=== PATIENT | female | born 1970 | race Caucasian/White ===

== ENCOUNTER 2025-09-24 12:50 | Outpatient (CLI) | payer BC, OTHER, SELFPAY ==
--- NOTE | 2025-09-24 13:00 | CRLHL7_ITS ---
For Patients: As a result of the Century Cures Act, medical imaging exams and procedure reports are released immediately into your electronic medical record. You may view this report before your referring provider. If you have questions, please contact your health care provider. INDICATION: Gastric cancer. Restaging. TECHNIQUE: CT chest, abdomen and pelvis acquired 62 cc Omnipaque 350 IV contrast. COMPARISON: 06/12/2025. FINDINGS: CHEST: No consolidation. No pulmonary edema. No pleural effusion or pneumothorax. Subcentimeter mediastinal lymph nodes. No hilar lymphadenopathy. The heart is normal in size. No significant effusion. No axillary lymphadenopathy. No chest wall mass. Right port catheter terminates within the superior vena cava. Bubbly sclerotic lesion within the left proximal humerus is redemonstrated and likely represents a low-grade chondroid lesion. Suture anchor within the right shoulder. ABDOMEN AND PELVIS: The liver is normal in size. There are grossly unchanged cysts within the liver as well as subcentimeter hypoattenuating lesions which are too small to further characterize the likely represent cysts as well. The gallbladder is distended. No biliary ductal dilatation. The spleen is normal in size. The pancreas is without stranding or main ductal dilatation the kidneys are without hydronephrosis. Prominent left renal pelvis is redemonstrated. Mild left perinephric stranding likely represent scarring and is unchanged. Right renal cysts. The urinary bladder is distended. Redemonstrated are postoperative changes within the stomach with J pouch or gastrojejunostomy. There is partial distention with ingested material. A stent is present. The small bowel is decompressed without evidence of an obstruction. A right-sided percutaneous small bowel catheter is noted terminating within the left pelvis. Previously terminated within the right lower quadrant. There is evidence of small bowel intussusception along the mid aspect of the catheter. The colon is nondilated without evidence of colitis. Scattered diverticula are present. No free air. No ascites. No organized drainable fluid collection. No omental caking or peritoneal nodularity. No lymphadenopathy. The uterus is present. Portal vein is patent. Aorta is normal in caliber. Bone windows demonstrate L4-5 instrumented fusion. IMPRESSION: 1. No CT evidence of metastatic disease within the chest, abdomen and pelvis. 2. Right percutaneous small bowel catheter now terminates within the small bowel of the left pelvis, previously the right lower quadrant. Evidence of small bowel intussusception along the mid aspect of the catheter. This is likely transient and benign. No evidence of bowel obstruction or enteritis. Please note that all CT scans at this facility use dose modulation, iterative reconstruction, and/or weight-based dosing when appropriate to reduce radiation dose to as low as reasonably achievable. Dictated by Damon Andres MD @ 09/25/2025 9:00:36 AM (Electronically Signed)
== END 2025-09-24 12:51 | disposition home or self-care (01) ==
LOC: CT 12:50
PROVIDERS: Visit Provider Clinical Nurse Specialist
DX: C16.9 Malignant neoplasm of stomach, unspecified (principal); K63.89 Other specified diseases of intestine; Z46.82 Encounter for fitting and adjustment of non-vascular catheter; K57.30 Diverticulosis of large intestine without perforation or abscess without bleeding; M89.8X2 Other specified disorders of bone, upper arm; N28.1 Cyst of kidney, acquired; R93.2 Abnormal findings on diagnostic imaging of liver and biliary tract
CPT/HCPCS: 71260; 74177; Q9967

== ENCOUNTER 2025-09-29 07:45 | Outpatient (RCR) | payer BC, OTHER, SELFPAY ==
[2025-04-21 09:07] LABS: Hematocrit* 36.6 % (33.0-51.0); Hemoglobin* 11.9 gm/dL (12.0-16.0); Immature Granulocytes Abs Auto 0.04 K/uL (0.00-0.30); Immature Granulocytes Pct Auto 0.7 %; Lymphocytes Absolute Auto 1.10 K/uL (0.90-2.90); Mean Corpuscular HGB Conc 33 gm/dL (32-36); Mean Corpuscular Hemoglobin 34 pg (26-34); Mean Corpuscular Volume 104 fL (80-100); RDW Coefficient of Variation % 13.8 % (11.5-15.5); Red Blood Count* 3.53 m/uL (4.00-5.20); Slide Review Reflex No; White Blood Count* 5.71 K/uL (4.50-11.00)
[2025-04-21] MEDS: SODIUM CHLORIDE 0.9 % (FLUSH) 10 ML SYRINGE IVF ×2 (09:09→11:28)
[2025-04-21 09:16] LABS: Chloride* 101 mmol/L (96-114)
[2025-04-21 09:17] LABS: Albumin* 3.7 g/dL (3.3-5.0); Potassium* 3.9 mmol/L (3.6-5.1); Sodium* 137 mmol/L (135-149)
[2025-04-21 09:19] LABS: Alanine Aminotransferase* 30 U/L (4-35); Anion Gap 4 mEq/L (7-15); Aspartate Amino Transferase* 26 U/L (12-35); Blood Urea Nitrogen* 18 mg/dL (7-30); Carbon Dioxide* 32 mmol/L (20-32); Creatinine* 0.7 mg/dL (0.5-1.5); Est. Creatinine Clearance* 74.23; Estimated Glomerular Filt Rate 101 ml/min
[2025-04-21 09:20] LABS: Alkaline Phosphatase* 53 U/L (40-150); Bilirubin Total* 0.6 mg/dL (0.1-1.5); Calcium* 9.4 mg/dL (8.4-10.6); Glucose* 106 mg/dL (60-115); Total Protein* 6.4 g/dL (6.0-8.3)
[2025-04-21] MEDS: NIVOLUMAB 240 MG, TUBING PRIMARY 1 EACH, In-line 0.2 micron filter set 1 EACH in 0.9 % ... 248 MG IVPB (10:38)
[2025-04-21] MEDS: 5 % DEXTROSE 250 ML IV (11:28)
[2025-04-21] MEDS: LEUCOVORIN CALCIUM 100 MG, TUBING SECONDARY 1 EACH in 5 % DEXTROSE 250 ML 250 ML 127 MG IV (11:45)
--- NOTE | 2025-04-23 10:21 | ONC.NURNOTE ---
Patient received brief review of chemo due to receiving prior to sa-uzoygsdemm-Xlnocpgxt medications-administration and potential side effects-after hours xqwtfesgdy-rffd-cync at home-nutrition Binder given-consents signed
[2025-04-23] MEDS: HEPARIN 500 UNIT/5 ML SYRINGE IVF (13:23)
[2025-04-23] MEDS: SODIUM CHLORIDE 0.9 % (FLUSH) 10 ML SYRINGE IVF (13:23)
[2025-04-23 14:09] VITALS: BP 120/83; PULSE 69; RESP 16; TEMP 36; O2SAT 98
[2025-05-06 09:26] LABS: Hematocrit* 35.5 % (33.0-51.0); Hemoglobin* 11.7 gm/dL (12.0-16.0); Immature Granulocytes Pct Auto 0.5 %; Lymphocytes Absolute Auto 1.10 K/uL (0.90-2.90); Mean Corpuscular HGB Conc 33 gm/dL (32-36); Mean Corpuscular Hemoglobin 34 pg (26-34); Mean Corpuscular Volume 104 fL (80-100); RDW Coefficient of Variation % 12.9 % (11.5-15.5); Red Blood Count* 3.41 m/uL (4.00-5.20); White Blood Count* 4.24 K/uL (4.50-11.00)
[2025-05-06 09:36] LABS: Immature Granulocytes Abs Auto 0.00 K/uL (0.00-0.30); Slide Review Reflex No
[2025-05-06 09:44] LABS: Albumin* 3.7 g/dL (3.3-5.0); Chloride* 102 mmol/L (96-114)
[2025-05-06 09:45] LABS: Potassium* 4.2 mmol/L (3.6-5.1); Sodium* 138 mmol/L (135-149)
[2025-05-06 09:47] LABS: Blood Urea Nitrogen* 24 mg/dL (7-30); Creatinine* 0.6 mg/dL (0.5-1.5); Est. Creatinine Clearance* 86.61; Estimated Glomerular Filt Rate 105 ml/min
[2025-05-06 09:48] LABS: Alanine Aminotransferase* 26 U/L (4-35); Alkaline Phosphatase* 106 U/L (40-150); Anion Gap 4 mEq/L (7-15); Aspartate Amino Transferase* 33 U/L (12-35); Bilirubin Total* 0.2 mg/dL (0.1-1.5); Calcium* 9.2 mg/dL (8.4-10.6); Carbon Dioxide* 32 mmol/L (20-32); Glucose* 108 mg/dL (60-115); Total Protein* 6.4 g/dL (6.0-8.3)
[2025-05-06] MEDS: SODIUM CHLORIDE 0.9 % (FLUSH) 10 ML SYRINGE IVF ×2 (11:10→14:26)
[2025-05-06] MEDS: DEXAMETHASONE 10 MG/ML PF 12 MG IVP (11:10)
[2025-05-06] MEDS: NIVOLUMAB 240 MG, TUBING PRIMARY 1 EACH, In-line 0.2 micron filter set 1 EACH in 0.9 % ... 248 MG IVPB (11:18)
[2025-05-06] MEDS: 5 % DEXTROSE 250 ML IV (11:51)
[2025-05-06] MEDS: LEUCOVORIN CALCIUM 100 MG, TUBING SECONDARY 1 EACH in 5 % DEXTROSE 250 ML 250 ML 128 MG IV (11:54)
[2025-05-06] MEDS: FAMOTIDINE 10 MG/ML inj 20 MG IVP (13:10)
[2025-05-08 13:47] VITALS: BP 112/80; PULSE 99; RESP 92; TEMP 36.7; O2SAT 99
[2025-05-08] MEDS: SODIUM CHLORIDE 0.9 % (FLUSH) 10 ML SYRINGE IVF (13:50)
[2025-05-08] MEDS: HEPARIN 500 UNIT/5 ML SYRINGE IVF (13:50)
[2025-05-19] MEDS: ALTEPLASE 2 MG INJ IVF (09:40)
[2025-05-19 09:56] LABS: Hematocrit* 35.7 % (33.0-51.0); Hemoglobin* 11.8 gm/dL (12.0-16.0); Immature Granulocytes Pct Auto 0.3 %; Lymphocytes Absolute Auto 0.80 K/uL (0.90-2.90); Mean Corpuscular HGB Conc 33 gm/dL (32-36); Mean Corpuscular Hemoglobin 34 pg (26-34); Mean Corpuscular Volume 103 fL (80-100); RDW Coefficient of Variation % 13.0 % (11.5-15.5); Red Blood Count* 3.48 m/uL (4.00-5.20); White Blood Count* 3.07 K/uL (4.50-11.00)
[2025-05-19 10:02] LABS: Immature Granulocytes Abs Auto 0.00 K/uL (0.00-0.30); Slide Review Reflex No
[2025-05-19 10:09] LABS: Albumin* 3.5 g/dL (3.3-5.0); Chloride* 101 mmol/L (96-114); Potassium* 3.4 mmol/L (3.6-5.1); Sodium* 136 mmol/L (135-149)
[2025-05-19 10:12] LABS: Alanine Aminotransferase* 23 U/L (4-35); Alkaline Phosphatase* 70 U/L (40-150); Anion Gap 4 mEq/L (7-15); Aspartate Amino Transferase* 29 U/L (12-35); Bilirubin Total* 0.4 mg/dL (0.1-1.5); Blood Urea Nitrogen* 14 mg/dL (7-30); Calcium* 9.4 mg/dL (8.4-10.6); Carbon Dioxide* 31 mmol/L (20-32); Creatinine* 0.7 mg/dL (0.5-1.5); Est. Creatinine Clearance* 74.23; Estimated Glomerular Filt Rate 101 ml/min; Glucose* 123 mg/dL (60-115); Total Protein* 6.4 g/dL (6.0-8.3)
[2025-05-19] MEDS: SODIUM CHLORIDE 0.9 % (FLUSH) 10 ML SYRINGE IVF (11:09)
[2025-05-19] MEDS: HEPARIN 500 UNIT/5 ML SYRINGE IVF (11:09)
[2025-06-02 09:12] VITALS: BP 121/85; PULSE 65; TEMP 36.7; O2SAT 100
[2025-06-02 09:57] LABS: Albumin* 3.1 g/dL (3.3-5.0); Chloride* 105 mmol/L (96-114); Sodium* 137 mmol/L (135-149)
[2025-06-02 10:00] LABS: Alanine Aminotransferase* 30 U/L (4-35); Alkaline Phosphatase* 54 U/L (40-150); Anion Gap 5 mEq/L (7-15); Aspartate Amino Transferase* 35 U/L (12-35); Bilirubin Total* 0.3 mg/dL (0.1-1.5); Blood Urea Nitrogen* 13 mg/dL (7-30); Calcium* 8.9 mg/dL (8.4-10.6); Carbon Dioxide* 27 mmol/L (20-32); Creatinine* 0.6 mg/dL (0.5-1.5); Est. Creatinine Clearance* 86.61; Estimated Glomerular Filt Rate 105 ml/min; Glucose* 114 mg/dL (60-115); Total Protein* 5.7 g/dL (6.0-8.3)
[2025-06-02 10:12] LABS: Hematocrit* 33.2 % (33.0-51.0); Hemoglobin* 10.9 gm/dL (12.0-16.0); Immature Granulocytes Abs Auto 0.06 K/uL (0.00-0.30); Immature Granulocytes Pct Auto 0.9 %; Mean Corpuscular HGB Conc 33 gm/dL (32-36); Mean Corpuscular Hemoglobin 34 pg (26-34); Mean Corpuscular Volume 102 fL (80-100); RDW Coefficient of Variation % 12.6 % (11.5-15.5); Red Blood Count* 3.25 m/uL (4.00-5.20); White Blood Count* 6.42 K/uL (4.50-11.00)
[2025-06-02 10:13] LABS: Potassium* 2.7 mmol/L (3.6-5.1)
[2025-06-02 10:17] LABS: Lymphocytes Absolute Auto 1.10 K/uL (0.90-2.90); Slide Review Reflex No
[2025-06-02] MEDS: POTASSIUM CHLORIDE 10 MEQ/100 ML PIGGYBACK 100 MEQ IVPB ×4 (11:05→14:19)
[2025-06-02] MEDS: SODIUM CHLORIDE 0.9 % (FLUSH) 10 ML SYRINGE IVF (15:25)
[2025-06-02] MEDS: HEPARIN 500 UNIT/5 ML SYRINGE IVF (15:25)
[2025-06-03] MEDS: SODIUM CHLORIDE 0.9 % (FLUSH) 10 ML SYRINGE IVF ×2 (09:30→14:52)
[2025-06-03 10:17] VITALS: BP 126/86; PULSE 57; RESP 15; TEMP 36.6; O2SAT 98
[2025-06-03 11:17] LABS: Albumin* 3.3 g/dL (3.3-5.0); Chloride* 104 mmol/L (96-114); Potassium* 3.4 mmol/L (3.6-5.1); Sodium* 137 mmol/L (135-149)
[2025-06-03 11:19] LABS: Blood Urea Nitrogen* 12 mg/dL (7-30); Creatinine* 0.7 mg/dL (0.5-1.5); Est. Creatinine Clearance* 74.23; Estimated Glomerular Filt Rate 101 ml/min
[2025-06-03 11:20] LABS: Alanine Aminotransferase* 32 U/L (4-35); Alkaline Phosphatase* 65 U/L (40-150); Anion Gap 3 mEq/L (7-15); Aspartate Amino Transferase* 36 U/L (12-35); Bilirubin Total* 0.4 mg/dL (0.1-1.5); Calcium* 9.3 mg/dL (8.4-10.6); Carbon Dioxide* 30 mmol/L (20-32); Glucose* 102 mg/dL (60-115); Total Protein* 5.9 g/dL (6.0-8.3)
[2025-06-03] MEDS: DEXAMETHASONE 10 MG/ML PF 12 MG IVP (11:34)
[2025-06-03] MEDS: NIVOLUMAB 240 MG, TUBING PRIMARY 1 EACH, In-line 0.2 micron filter set 1 EACH in 0.9 % ... 248 MG IVPB (11:48)
[2025-06-03] MEDS: LEUCOVORIN CALCIUM 100 MG, TUBING SECONDARY 1 EACH in 5 % DEXTROSE 250 ML 250 ML 128 MG IV (12:31)
[2025-06-03] MEDS: 5 % DEXTROSE 250 ML IV (12:32)
[2025-06-03] MEDS: POTASSIUM BICARB 25 MEQ EFFERVESCENT TAB J-TUBE (13:37)
[2025-06-05 13:44] VITALS: BP 85/61
[2025-06-05 13:45] VITALS: BP 90/63; PULSE 75; RESP 16; TEMP 36.2; O2SAT 97
[2025-06-05] MEDS: SODIUM CHLORIDE 0.9 % (FLUSH) 10 ML SYRINGE IVF (13:53)
[2025-06-05] MEDS: HEPARIN 500 UNIT/5 ML SYRINGE IVF (13:53)
--- NOTE | 2025-06-05 14:06 | ONC.NURNOTE ---
Pt here for pump off. Pt states she was more exhausted with this treatment, feels better today. Pt has a scan and has an appt with Dr. Pinon prior to next cycle. BP 90/63, initally 85/61. Pt denies feeling dizzy or lightheaded. Pt states she took her blood pressure meds at 1100 today (3 blood pressure meds.) Dextrine Mixer recommended to pt she should follow up with her primary care to evaluate BP and need for these meds. Pt verbalized understanding of plan of care.
[2025-06-16 09:23] VITALS: BP 124/84; PULSE 78; RESP 16; TEMP 36.7; O2SAT 98
[2025-06-16 10:06] LABS: Albumin* 3.3 g/dL (3.3-5.0); Chloride* 104 mmol/L (96-114); Potassium* 3.7 mmol/L (3.6-5.1); Sodium* 135 mmol/L (135-149)
[2025-06-16 10:09] LABS: Alanine Aminotransferase* 26 U/L (4-35); Alkaline Phosphatase* 66 U/L (40-150); Anion Gap 4 mEq/L (7-15); Aspartate Amino Transferase* 30 U/L (12-35); Bilirubin Total* 0.7 mg/dL (0.1-1.5); Blood Urea Nitrogen* 14 mg/dL (7-30); Calcium* 9.0 mg/dL (8.4-10.6); Carbon Dioxide* 27 mmol/L (20-32); Creatinine* 0.6 mg/dL (0.5-1.5); Est. Creatinine Clearance* 86.61; Estimated Glomerular Filt Rate 105 ml/min; Glucose* 115 mg/dL (60-115); Total Protein* 5.9 g/dL (6.0-8.3)
[2025-06-16 11:21] LABS: Hematocrit* 32.8 % (33.0-51.0); Hemoglobin* 10.8 gm/dL (12.0-16.0); Immature Granulocytes Pct Auto 0.7 %; Mean Corpuscular HGB Conc 33 gm/dL (32-36); Mean Corpuscular Hemoglobin 33 pg (26-34); Mean Corpuscular Volume 99 fL (80-100); RDW Coefficient of Variation % 13.3 % (11.5-15.5); Red Blood Count* 3.31 m/uL (4.00-5.20)
[2025-06-16 11:26] LABS: Immature Granulocytes Abs Auto 0.00 K/uL (0.00-0.30); Lymphocytes Absolute Auto 0.50 K/uL (0.90-2.90); Slide Review Reflex Yes; White Blood Count* 1.47 K/uL (4.50-11.00)
[2025-06-16] MEDS: SODIUM CHLORIDE 0.9 % (FLUSH) 10 ML SYRINGE IVF (11:53)
[2025-06-16] MEDS: HEPARIN 500 UNIT/5 ML SYRINGE IVF (11:53)
[2025-06-16 12:15] LABS: Slide Review Acceptable Review (Acceptable)
--- NOTE | 2025-06-17 14:29 | ONC.NURNOTE ---
Late entry: 06/16/25. Pt seen by Dr. Pinon, ANC 0.5, and platelets 80,000. Pt chemotherapy held today, pt to return in 2 weeks per her request. Pt educated on neutropenic precautions and when to call [facility] or seek medical attention. Pt verbalized understanding of education.
[2025-06-30 09:10] VITALS: BP 134/89; PULSE 69; RESP 15; TEMP 36.4; O2SAT 97
[2025-06-30 09:25] LABS: Hematocrit* 35.5 % (33.0-51.0); Hemoglobin* 11.7 gm/dL (12.0-16.0); Immature Granulocytes Abs Auto 0.10 K/uL (0.00-0.30); Immature Granulocytes Pct Auto 0.9 %; Lymphocytes Absolute Auto 1.50 K/uL (0.90-2.90); Mean Corpuscular HGB Conc 33 gm/dL (32-36); Mean Corpuscular Hemoglobin 33 pg (26-34); Mean Corpuscular Volume 99 fL (80-100); RDW Coefficient of Variation % 13.0 % (11.5-15.5); Red Blood Count* 3.57 m/uL (4.00-5.20); White Blood Count* 11.18 K/uL (4.50-11.00)
[2025-06-30 09:38] LABS: Slide Review Reflex No
[2025-06-30 09:40] LABS: Albumin* 3.2 g/dL (3.3-5.0); Chloride* 104 mmol/L (96-114); Potassium* 3.6 mmol/L (3.6-5.1); Sodium* 136 mmol/L (135-149)
[2025-06-30 09:43] LABS: Alanine Aminotransferase* 46 U/L (4-35); Alkaline Phosphatase* 72 U/L (40-150); Anion Gap 1 mEq/L (7-15); Aspartate Amino Transferase* 42 U/L (12-35); Bilirubin Total* 0.4 mg/dL (0.1-1.5); Blood Urea Nitrogen* 14 mg/dL (7-30); Calcium* 9.3 mg/dL (8.4-10.6); Carbon Dioxide* 31 mmol/L (20-32); Creatinine* 0.7 mg/dL (0.5-1.5); Est. Creatinine Clearance* 74.23; Estimated Glomerular Filt Rate 101 ml/min; Glucose* 99 mg/dL (60-115); Total Protein* 6.0 g/dL (6.0-8.3)
[2025-06-30] MEDS: NIVOLUMAB 240 MG, TUBING PRIMARY 1 EACH, In-line 0.2 micron filter set 1 EACH in 0.9 % ... 248 MG IVPB (11:23)
[2025-06-30 11:24] VITALS: BMI 24.1
[2025-06-30] MEDS: LEUCOVORIN CALCIUM 100 MG, TUBING SECONDARY 1 EACH in 5 % DEXTROSE 250 ML 250 ML 128 MG IV (12:01)
[2025-06-30] MEDS: 5 % DEXTROSE 250 ML IV (12:05)
--- NOTE | 2025-07-01 08:45 | ONC.NURNOTE ---
Addendum entered by Eugenie Zamora RN 07/02/25 13:38: Pt here for pump off, VSS. Facial warmth, redness, and swelling significantly improved today. Pt brought photo taken yesterday, entry writer did show Dr. Pinon the picture. Since her symptoms did self resolve, per Dr. Pinon, no intervention needed at this time. Per Zi, pt should have benadryl at home and would advise her to take benadryl if these symptoms occurred again. Will update Lin Allen APRN who will be assessing her prior to next cycle. Addendum entered by Suni Daniels RN 07/01/25 09:25: Patient was given the option to come in to have this looked at, she declined. Notified of things to watch for, and go to ER if needed. (Anaphalaxis symptoms) Cortisol was added to labs from yesterday morning. She will be in tomorrow for pump off, nursing assessment to be done further at this time. Original Note: Patient called with the following symptoms to report following her FOLFOX/Nivo given yesterday. facial warmth and swelling starting last night, and continuing into today. Body aches increased fatigue, she notes that last cycle she slept for 36 hours no fever no tongue swelling or difficulty breathing or swallowing. no rash present Nursing to discuss with provider in office to determine if needs to be seen and come up with a plan.
[2025-07-02] MEDS: HEPARIN 500 UNIT/5 ML SYRINGE IVF (13:04)
[2025-07-02] MEDS: SODIUM CHLORIDE 0.9 % (FLUSH) 10 ML SYRINGE IVF (13:04)
[2025-07-02 13:32] VITALS: BP 106/71; PULSE 84; RESP 18; TEMP 35.8; O2SAT 97
[2025-07-02 22:14] LABS: Cortisol, Serum 3.6 ug/dL
[2025-07-03 13:35] VITALS: BP 114/76; PULSE 66; RESP 16; TEMP 35.9; O2SAT 98
[2025-07-14 09:51] LABS: Hematocrit* 32.4 % (33.0-51.0); Hemoglobin* 10.5 gm/dL (12.0-16.0); Immature Granulocytes Pct Auto 8.7 %; Mean Corpuscular HGB Conc 32 gm/dL (32-36); Mean Corpuscular Hemoglobin 32 pg (26-34); Mean Corpuscular Volume 100 fL (80-100); RDW Coefficient of Variation % 13.9 % (11.5-15.5); Red Blood Count* 3.25 m/uL (4.00-5.20); White Blood Count* 13.39 K/uL (4.50-11.00)
[2025-07-14 09:54] LABS: Immature Granulocytes Abs Auto 1.20 K/uL (0.00-0.30); Lymphocytes Absolute Auto 0.90 K/uL (0.90-2.90); Slide Review Reflex No
[2025-07-14 11:13] LABS: Chloride* 103 mmol/L (96-114)
[2025-07-14 11:14] LABS: Albumin* 3.2 g/dL (3.3-5.0); Potassium* 4.3 mmol/L (3.6-5.1); Sodium* 135 mmol/L (135-149)
[2025-07-14 11:16] LABS: Blood Urea Nitrogen* 9 mg/dL (7-30); Creatinine* 0.6 mg/dL (0.5-1.5); Est. Creatinine Clearance* 85.57; Estimated Glomerular Filt Rate 105 ml/min
[2025-07-14 11:17] LABS: Alanine Aminotransferase* 20 U/L (4-35); Alkaline Phosphatase* 103 U/L (40-150); Anion Gap 5 mEq/L (7-15); Aspartate Amino Transferase* 30 U/L (12-35); Bilirubin Total* 0.3 mg/dL (0.1-1.5); Calcium* 8.9 mg/dL (8.4-10.6); Carbon Dioxide* 27 mmol/L (20-32); Glucose* 143 mg/dL (60-115); Total Protein* 5.9 g/dL (6.0-8.3)
[2025-07-14] MEDS: NIVOLUMAB 240 MG, TUBING PRIMARY 1 EACH, In-line 0.2 micron filter set 1 EACH in 0.9 % ... 248 MG IVPB (12:13)
[2025-07-14] MEDS: SODIUM CHLORIDE 0.9 % (FLUSH) 10 ML SYRINGE IVF ×2 (12:46→15:35)
[2025-07-14] MEDS: 5 % DEXTROSE 250 ML IV (12:46)
[2025-07-14] MEDS: DEXAMETHASONE 10 MG/ML PF 12 MG IVP (12:46)
[2025-07-14] MEDS: LEUCOVORIN CALCIUM 100 MG, TUBING SECONDARY 1 EACH in 5 % DEXTROSE 250 ML 250 ML 128 MG IV (13:13)
[2025-07-16 14:56] VITALS: BP 90/69; PULSE 94; RESP 14; TEMP 37.3; O2SAT 96
[2025-07-16] MEDS: PEGFILGRASTIM-CBQV (ONBODY) 6 MG/0.6 ML SUBCUT (15:27)
[2025-07-16] MEDS: SODIUM CHLORIDE 0.9 % (FLUSH) 10 ML SYRINGE IVF (15:28)
[2025-07-16] MEDS: HEPARIN 500 UNIT/5 ML SYRINGE IVF (15:28)
--- NOTE | 2025-07-16 15:49 | ONC.NURNOTE ---
Pt here for pump off and 1st Udenyca On-Body. She notes she's more tired than usual this cycle, is sleeping extra. Poor po intake; she is trying to drink gatorade. BP 90/69; reviewed s/s orthostatic hypotension/dehydration. She denies feeling light-headed, dizzy, or having vision changes with standing/position changes. Bilateral ankle swelling resolved. Discussed possibility of IV fluids; she is unable to consider today d/t ride waiting. Reinforced pt to call if s/s dehydration/orthostatic; she verbalizes understanding.
[2025-08-05 10:48] LABS: Hematocrit* 30.0 % (33.0-51.0); Hemoglobin* 9.6 gm/dL (12.0-16.0); Immature Granulocytes Abs Auto 0.10 K/uL (0.00-0.30); Immature Granulocytes Pct Auto 1.1 %; Mean Corpuscular HGB Conc 32 gm/dL (32-36); Mean Corpuscular Hemoglobin 32 pg (26-34); Mean Corpuscular Volume 101 fL (80-100); RDW Coefficient of Variation % 15.1 % (11.5-15.5); Red Blood Count* 2.98 m/uL (4.00-5.20); White Blood Count* 9.04 K/uL (4.50-11.00)
[2025-08-05 10:49] LABS: Lymphocytes Absolute Auto 0.60 K/uL (0.90-2.90); Slide Review Reflex No
[2025-08-05 11:00] LABS: Chloride* 101 mmol/L (96-114)
[2025-08-05 11:01] LABS: Albumin* 2.8 g/dL (3.3-5.0); Potassium* 3.6 mmol/L (3.6-5.1); Sodium* 133 mmol/L (135-149)
[2025-08-05 11:03] LABS: Alanine Aminotransferase* 17 U/L (4-35); Alkaline Phosphatase* 99 U/L (40-150); Anion Gap 3 mEq/L (7-15); Aspartate Amino Transferase* 28 U/L (12-35); Bilirubin Total* 0.3 mg/dL (0.1-1.5); Blood Urea Nitrogen* 12 mg/dL (7-30); Carbon Dioxide* 29 mmol/L (20-32); Creatinine* 0.5 mg/dL (0.5-1.5); Est. Creatinine Clearance* 102.69; Estimated Glomerular Filt Rate 109 ml/min; Total Protein* 5.5 g/dL (6.0-8.3)
[2025-08-05 11:04] LABS: Calcium* 8.5 mg/dL (8.4-10.6); Glucose* 158 mg/dL (60-115)
[2025-08-05] MEDS: NIVOLUMAB 240 MG, TUBING PRIMARY 1 EACH, In-line 0.2 micron filter set 1 EACH in 0.9 % ... 248 MG IVPB (12:34)
[2025-08-05] MEDS: SODIUM CHLORIDE 0.9 % (FLUSH) 10 ML SYRINGE IVF (12:35)
[2025-08-05] MEDS: DEXAMETHASONE 10 MG/ML PF 12 MG IVP (13:12)
[2025-08-05] MEDS: 5 % DEXTROSE 250 ML IV (13:12)
[2025-08-05] MEDS: LEUCOVORIN CALCIUM 100 MG, TUBING SECONDARY 1 EACH in 5 % DEXTROSE 250 ML 250 ML 128 MG IV (13:41)
[2025-08-05 15:42] VITALS: BP 150/93; PULSE 68; RESP 18; TEMP 36.2; O2SAT 96
--- NOTE | 2025-08-05 15:56 | ONC.NURNOTE ---
Pt c/o moderate back spasms at 1540, with approx 5 min remaining of Oxaliplatin/Leucovorin infusion. Infusion stopped and Lin Allen APRN notified. No other symptoms besides being slightly pale. VSS, BP slightly elevated. Order received to discontinue Oxaliplatin/leucovorin for today and given Methylprednisolone IVP and pepcid and to wait 15 min to see if symptoms improve. Report given to Indigo ALVAREZ.
[2025-08-05] MEDS: FAMOTIDINE 10 MG/ML inj 20 MG IVP (16:03)
[2025-08-05] MEDS: METHYLPREDNISOLONE SOD SUCC 62.5 MG/ML (125) 125 MG IVP (16:06)
[2025-08-05 16:44] VITALS: BP 139/91
[2025-08-07 14:21] VITALS: BP 96/68; PULSE 95; RESP 14; TEMP 36.7; O2SAT 100
[2025-08-07] MEDS: SODIUM CHLORIDE 0.9 % (FLUSH) 10 ML SYRINGE IVF (14:34)
[2025-08-07] MEDS: HEPARIN 500 UNIT/5 ML SYRINGE IVF (14:34)
[2025-08-07] MEDS: PEGFILGRASTIM-CBQV (ONBODY) 6 MG/0.6 ML SUBCUT (14:37)
[2025-09-01 09:37] LABS: Hematocrit* 29.8 % (33.0-51.0); Hemoglobin* 9.3 gm/dL (12.0-16.0); Immature Granulocytes Abs Auto 0.11 K/uL (0.00-0.30); Immature Granulocytes Pct Auto 1.3 %; Mean Corpuscular HGB Conc 31 gm/dL (32-36); Mean Corpuscular Hemoglobin 32 pg (26-34); Mean Corpuscular Volume 102 fL (80-100); RDW Coefficient of Variation % 15.7 % (11.5-15.5); Red Blood Count* 2.93 m/uL (4.00-5.20); White Blood Count* 8.36 K/uL (4.50-11.00)
[2025-09-01 09:49] LABS: Lymphocytes Absolute Auto 1.20 K/uL (0.90-2.90); Slide Review Reflex No
[2025-09-01 09:53] LABS: Albumin* 2.6 g/dL (3.3-5.0); Chloride* 108 mmol/L (96-114)
[2025-09-01 09:54] LABS: Potassium* 3.1 mmol/L (3.6-5.1); Sodium* 135 mmol/L (135-149)
[2025-09-01 09:56] LABS: Alanine Aminotransferase* 19 U/L (4-35); Anion Gap 1 mEq/L (7-15); Aspartate Amino Transferase* 29 U/L (12-35); Blood Urea Nitrogen* 12 mg/dL (7-30); Carbon Dioxide* 26 mmol/L (20-32); Creatinine* 0.6 mg/dL (0.5-1.5); Est. Creatinine Clearance* 85.57; Estimated Glomerular Filt Rate 105 ml/min
[2025-09-01 09:57] LABS: Alkaline Phosphatase* 81 U/L (40-150); Bilirubin Total* 0.5 mg/dL (0.1-1.5); Calcium* 8.4 mg/dL (8.4-10.6); Glucose* 110 mg/dL (60-115); Total Protein* 5.5 g/dL (6.0-8.3)
[2025-09-01] MEDS: ONDANSETRON 2 MG/ML inj 4 MG IVP (10:55)
[2025-09-01] MEDS: POTASSIUM CHLORIDE 10 MEQ/100 ML PIGGYBACK 100 MEQ IVPB ×2 (10:55→12:09)
[2025-09-01] MEDS: NIVOLUMAB 480 MG, TUBING PRIMARY 1 EACH, In-line 0.2 micron filter set 1 EACH in 0.9 % ... 296 MG IVPB (13:20)
[2025-09-01] MEDS: LEUCOVORIN CALCIUM 100 MG, TUBING SECONDARY 1 EACH in 5 % DEXTROSE 250 ML 250 ML 500 MG IV (14:01)
[2025-09-01] MEDS: SODIUM CHLORIDE 0.9 % (FLUSH) 10 ML SYRINGE IVF (14:43)
[2025-09-03 13:22] VITALS: BP 86/63; PULSE 69; RESP 15; TEMP 36.5; O2SAT 98
[2025-09-03] MEDS: SODIUM CHLORIDE 0.9 % (FLUSH) 10 ML SYRINGE IVF (13:30)
[2025-09-03] MEDS: HEPARIN 500 UNIT/5 ML SYRINGE IVF (13:30)
--- NOTE | 2025-09-23 13:25 | ONC.NURNOTE ---
The patient called the office stating that her nausea and vomiting has increased over the last couple of days. She has had some of this since January, but notes over the last few days that she has had more violent vomiting. Her appetite has gone down significantly as well. Her weight at home is currently 118 pounds, when she was in the office on 09/03 she was noted to be 125 pounds. She has experienced some dizziness as well. She was started on furosemide 20mg daily by her PCP last week as well. This was done for swollen ankles. She feels that her nausea is better as the day progresses, but feels she may be vomiting some of the evening food and tube feedings the next day well. The consistency seems to be food. This was discussed with [employer], as patient is refusing to go to the ER to have her abdomen looked at sooner than her CT tomorrow. She will come in for orthostatics tomorrow with her labs prior to her CT scan. If orthostatic and shows not s/sx of fluid overload, she will receive a liter of fluids, ordered by WHEEL CLEANER. She was further instructed to hold her furosemide tomorrow. The patient is comfortable with this plan. Further encouraged her to be seen in the ER if this worsens throughout the night, or has increase in pain.
[2025-09-24 12:10] VITALS: BP 97/69; PULSE 80; RESP 14; TEMP 36.3; O2SAT 98
[2025-09-24] MEDS: SODIUM CHLORIDE 0.9 % (FLUSH) 10 ML SYRINGE IVF ×2 (12:20→14:02)
--- NOTE | 2025-09-24 12:30 | ONC.NURNOTE ---
Katie sample obtained
[2025-09-24 12:44] LABS: Hematocrit* 34.5 % (33.0-51.0); Hemoglobin* 11.1 gm/dL (12.0-16.0); Immature Granulocytes Abs Auto 0.00 K/uL (0.00-0.30); Immature Granulocytes Pct Auto 0.0 %; Mean Corpuscular HGB Conc 32 gm/dL (32-36); Mean Corpuscular Hemoglobin 33 pg (26-34); Mean Corpuscular Volume 102 fL (80-100); RDW Coefficient of Variation % 16.2 % (11.5-15.5); Red Blood Count* 3.37 m/uL (4.00-5.20); White Blood Count* 3.36 K/uL (4.50-11.00)
[2025-09-24 12:51] LABS: Lymphocytes Absolute Auto 0.60 K/uL (0.90-2.90); Slide Review Reflex No
[2025-09-24 12:57] LABS: Albumin* 2.9 g/dL (3.3-5.0); Chloride* 98 mmol/L (96-114); Potassium* 3.3 mmol/L (3.6-5.1); Sodium* 132 mmol/L (135-149)
[2025-09-24 12:59] LABS: Blood Urea Nitrogen* 19 mg/dL (7-30); Creatinine* 0.7 mg/dL (0.5-1.5); Est. Creatinine Clearance* 61.84; Estimated Glomerular Filt Rate 101 ml/min
[2025-09-24 13:00] LABS: Alanine Aminotransferase* 22 U/L (4-35); Alkaline Phosphatase* 75 U/L (40-150); Anion Gap 4 mEq/L (7-15); Aspartate Amino Transferase* 24 U/L (12-35); Bilirubin Total* 0.9 mg/dL (0.1-1.5); Calcium* 8.8 mg/dL (8.4-10.6); Carbon Dioxide* 30 mmol/L (20-32); Glucose* 170 mg/dL (60-115); Total Protein* 5.6 g/dL (6.0-8.3)
[2025-09-24] MEDS: HEPARIN 500 UNIT/5 ML SYRINGE IVF (14:02)
--- NOTE | 2025-09-25 16:02 | ONC.NURNOTE ---
Called patient to check in and see how she is feeling today. Patient reports she woke up feeling good. Reports when she starts to try to eat she gets nauseated and feels like she will throw up. She has not thrown up at all today and reports her nausea is at her baseline. Does feel that getting the IVF yesterday helped. Advised her to call tomorrow if she felt she needed something prior to going into the weekend. She is scheduled for follow up with Dr. Pinon on Saturday 09/29.
[2025-09-29] MEDS: SODIUM CHLORIDE 0.9 % (FLUSH) 10 ML SYRINGE IVF ×2 (09:19→13:39)
[2025-09-29] MEDS: POTASSIUM CHLORIDE 10 MEQ/100 ML PIGGYBACK 100 MEQ IVPB ×4 (09:19→12:28)
[2025-09-29] MEDS: HEPARIN 500 UNIT/5 ML SYRINGE IVF (13:39)
--- NOTE | 2025-09-29 13:40 | ONC.NURNOTE ---
pt received 30mEq of potassium. 4th bag clamped and didn't infuse. pt refused to stay for additional hour to infuse 4th and final bag of potassium. pt dc'd per per request.
== END 2025-09-30 23:59 | disposition home or self-care (01) ==
LOC: CCIC 07:45
PROVIDERS: Clinical Nurse Specialist; Internal Medicine Hematology & Oncology; Visit Provider Internal Medicine Hematology & Oncology
DX: C16.9 Malignant neoplasm of stomach, unspecified (principal); C78.6 Secondary malignant neoplasm of retroperitoneum and peritoneum; Z93.4 Other artificial openings of gastrointestinal tract status; G31.84 Mild cognitive impairment of uncertain or unknown etiology; Z79.01 Long term (current) use of anticoagulants; Z86.718 Personal history of other venous thrombosis and embolism; T45.1X5A Adverse effect of antineoplastic and immunosuppressive drugs, initial encounter; R63.4 Abnormal weight loss; R11.2 Nausea with vomiting, unspecified; Z51.81 Encounter for therapeutic drug level monitoring; Z79.899 Other long term (current) drug therapy
CPT/HCPCS: 36415; 36591; 71260; 74177; 80050; 80053; 82533; 84443; 85025; 96360; 96361; 96367; 96368; 96372; 96375; 96377; 96413; 96415; 96416; 96417; 97802; 99001; 99199; 99202; 99205; 99211; 99213; 99214; 99215; G0463; A9270; J0640; J1100; J1308; J1642; J2405; J2469; J2919; J2997; J3480; J7030; J7050; J9190; J9263; J9299; Q5111; Q9967